=== PATIENT | male | born 1975 | race African-American/Black ===

== ENCOUNTER 2016-12-23 17:08 | Emergency (ER) | payer SELFPAY ==
[~2016-12-23 17:08] MED LIST: AMOX500C PO; HYDR-3533 PO
[2016-12-23 17:10] VITALS: BP 130/90; PULSE 83; RESP 12; TEMP 98.7; O2SAT 98
[2016-12-23 17:52] LABS: BLOOD, URINE NEG (NEG); COMMENT (UR) CULT NOT INDICATED; CULTURE IF INDICATED CULT NOT INDICATED; GLUCOSE,URINE NEG (NEG); KETONE, URINE TRACE mg/dL (NEG); MUCUS URINE FEW /lpf (OCC); NITRITE,URINE NEG (NEG); PH, URINE 5.5 (5.0-8.5); SQUAMOUS EPITHELIAL CELL URINE <1 /hpf (0-5); URINE COLOR YELLOW (YELLW/STRAW)
[2016-12-23] MEDS ORDERED: SODIUM CHLOR 0.9% 1000 ML INJ 1,000 ML IV SCH (18:06)
--- NOTE | 2016-12-23 18:09 | PD ---
HPI Chief Complaint: Flank/Kidney Pain Time Seen by Provider: 17:59 Travel History International Travel<30 days: No Contact w/Intl Traveler<30days: No Traveled to known affect area: No History of Present Illness HPI Patient 41-year-old male presents emergency Department with right flank pain. Patient states she's also been having some mild nausea but the pain hurts him anytime he does twisting motion of his low back. States been gradually worsening over the past few days. He states it feels like it's his "kidney pain ". Patient states never had any problems kidneys stones in the past problems in his family. Denies any dysuria denies any blood in urine denies any fever. Denies any waking or weight loss. Denies any abdominal pain. Eyes any history of heavy lifting or traumatic injury to his low back. PFSH Past Medical History Diminished Hearing: No Past Surgical History Oral Surgery: Yes (FX JAW) Social History Alcohol Use: Yes (DAILY) Tobacco Use: Yes (1/2 ppd) Substance Use: No Allergies-Medications (Allergen,Severity, Reaction): Coded Allergies: No Known Allergies (Verified , 12/23/16) Reported Meds & Prescriptions Reported Meds & Active Scripts Active Flexeril (Cyclobenzaprine HCl) 10 Mg Tab 10 Mg PO TID Review of Systems Except as stated in HPI: all other systems reviewed are Neg Physical Exam Narrative GENERAL: Well-developed well-nourished no apparent distress. SKIN: Focused skin assessment warm/dry. HEAD: Atraumatic. Normocephalic. EYES: Pupils equal and round. No scleral icterus. No injection or drainage. ENT: No nasal bleeding or discharge. Mucous membranes pink and moist. NECK: Trachea midline. No JVD. CARDIOVASCULAR: Regular rate and rhythm. No murmur appreciated. RESPIRATORY: No accessory muscle use. Clear to auscultation. Breath sounds equal bilaterally. GASTROINTESTINAL: Abdomen soft, non-tender, nondistended. Hepatic and splenic margins not palpable. No CVA tenderness. MUSCULOSKELETAL: No obvious deformities. No clubbing. No cyanosis. No edema. No tenderness to palpation of the muscles of the low back. No CT or L-spine midline tenderness or step-off. NEUROLOGICAL: Awake and alert. No obvious cranial nerve deficits. Motor grossly within normal limits. Normal speech. PSYCHIATRIC: Appropriate mood and affect; insight and judgment normal. Data Data Last Documented VS Vital Signs Date Time Temp Pulse Resp B/P Pulse Ox O2 Delivery O2 Flow Rate FiO2 12/23/16 19:27 16 12/23/16 18:46 65 125/89 98 12/23/16 18:30 Room Air 12/23/16 17:10 98.7 Orders Urinalysis - C+S If Indicated (12/23/16 17:26) Basic Metabolic Panel (Bmp) (12/23/16 18:06) Complete Blood Count With Diff (12/23/16 18:06) Ct Abd/Pel W/O Iv Contrast (12/23/16 18:06) Iv Access Insert/Monitor (12/23/16 18:06) Ecg Monitoring (12/23/16 18:06) Oximetry (12/23/16 18:06) Ondansetron Inj (Zofran Inj) (12/23/16 18:15) Sodium Chlor 0.9% 1000 Ml Inj (Ns 1000 M (12/23/16 18:06) Sodium Chloride 0.9% Flush (Ns Flush) (12/23/16 18:15) Ketorolac Inj (Toradol Inj) (12/23/16 18:15) Labs Laboratory Tests Test 12/23/16 12/23/16 17:28 18:27 Urine Color YELLOW Urine Turbidity CLEAR Urine pH 5.5 Urine Specific L[place]ori 1.024 Urine Protein TRACE mg/dL Urine Glucose (UA) NEG mg/dL Urine Ketones TRACE mg/dL Urine Occult Blood NEG Urine Nitrite NEG Urine Bilirubin NEG Urine Urobilinogen LESS THAN 2.0 MG/DL Urine Leukocyte Esterase NEG Urine RBC LESS THAN 1 /hpf Urine WBC 1 /hpf Urine Squamous Epithelial <1 /hpf Cells Urine Mucus FEW /lpf Microscopic Urinalysis Comment CULT NOT INDICATED White Blood Count 9.0 TH/MM3 Red Blood Count 5.09 MIL/MM3 Hemoglobin 14.5 GM/DL Hematocrit 43.9 % Mean Corpuscular Volume 86.2 FL Mean Corpuscular Hemoglobin 28.4 PG Mean Corpuscular Hemoglobin 32.9 % Concent Red Cell Distribution Width 15.2 % Platelet Count 224 TH/MM3 Mean Platelet Volume 9.3 FL Neutrophils (%) (Auto) 67.5 % Lymphocytes (%) (Auto) 21.3 % Monocytes (%) (Auto) 9.7 % Eosinophils (%) (Auto) 0.7 % Basophils (%) (Auto) 0.8 % Neutrophils # (Auto) 6.1 TH/MM3 Lymphocytes # (Auto) 1.9 TH/MM3 Monocytes # (Auto) 0.9 TH/MM3 Eosinophils # (Auto) 0.1 TH/MM3 Basophils # (Auto) 0.1 TH/MM3 CBC Comment DIFF FINAL Differential Comment Sodium Level 140 MEQ/L Potassium Level 4.2 MEQ/L Chloride Level 104 MEQ/L Carbon Dioxide Level 25.9 MEQ/L Anion Gap 10 MEQ/L Blood Urea Nitrogen 23 MG/DL Creatinine 1.68 MG/DL Estimat Glomerular Filtration 55 ML/MIN Rate Random Glucose 109 MG/DL Calcium Level 9.4 MG/DL MDM Medical Decision Making Medical Screen Exam Complete: Yes Emergency Medical Condition: Yes Differential Diagnosis Kidney stone, muscular skeletal pain, UTI. Narrative Course Patient 41-year-old male roomed in emergency department, has elements of both musculoskeletal low back pain as well as kidney stone pain. Discussed with the patient could consider symptomatic management and follow-up with a primary care physician. Patient is quite concerned with his kidneys at this time and would like to get CT imaging. I'm amenable.. Last 24 hours Impressions Abdomen/Pelvis CT 12/23/16 1806 Signed Impressions: Service Date/Time: Friday, December 23, 2016 18:20 - CONCLUSION: Questionable mild left-sided colitis. No obstructive uropathy. Small right renal cyst. Marques Bejarano MD Discuss results with the patient he has had no colitis type symptoms at this time. Discussed if he starts having diarrhea nausea or vomiting and this may be the cause of his symptoms. However I feel on his physical exam that his symptoms are much more muscular skeletal. Discussed with him symptomatically management return to ED criteria follow-up with a primary care physician. He is stable for discharge at this time. Diagnosis Primary Impression: Left flank pain Additional Impression: Muscle strain Med/Other Pt SpecificInfo: Prescription(s) given Scripts Cyclobenzaprine (Flexeril)10 Mg Tab10 Mg PO TID #20 TAB Ref 0 Prov:Luca Marcus MD 12/23/16 Disposition: 01 DISCHARGE HOME Condition: Stable Luca Marcus MD Dec 23, 2016 18:09
[2016-12-23] MEDS ORDERED: KETOROLAC TROMETHAMINE 30 MG/ML (IVP) VIAL IVP ONE (18:15)
[2016-12-23] MEDS ORDERED: SODIUM CHLORIDE 0.9% FLUSH 10 ML FLUSH IV FLUSH PRN (18:15)
[2016-12-23] MEDS ORDERED: ONDANSETRON HCL 4 MG/2 ML VIAL IVP ONE (18:15)
[2016-12-23 18:30] VITALS: O2SAT 100
[2016-12-23 18:42] LABS: AUTOMATED NEUTROPHIL # 6.1 TH/MM3 (1.8-7.7); BASOPHIL # 0.1 TH/MM3 (0-0.2); BASOPHIL % 0.8 % (0.0-2.0); EOSINOPHIL # 0.1 TH/MM3 (0-0.4); EOSINOPHIL % 0.7 % (0.0-4.0); HEMATOCRIT 43.9 % (39.0-51.0); HEMO FLAGS DIFF FINAL; LYMPH % 21.3 % (9.0-44.0); LYMPHOCYTE # 1.9 TH/MM3 (1.0-4.8); MEAN CELL VOLUME 86.2 FL (80.0-100.0); MEAN CORPUSCULAR HEMOGLOBIN 28.4 PG (27.0-34.0); MEAN CORPUSCULAR HGB CONC 32.9 % (32.0-36.0); MONO % 9.7 % (0.0-8.0); NEUT % 67.5 % (16.0-70.0); PLATELET COUNT 224 TH/MM3 (150-450); RED BLOOD COUNT 5.09 MIL/MM3 (4.50-5.90); RED CELL DISTRIBUTION WIDTH 15.2 % (11.6-17.2)
[2016-12-23 18:46] VITALS: BP 125/89; PULSE 65; RESP 14; O2SAT 98
[2016-12-23] MEDS ORDERED: CYCL1TAB29 PO (18:46)
--- NOTE | 2016-12-23 18:51 | RADRPT ---
EXAM DATE/TIME: 12/23/2016 18:20 [facility] COMPARISON: No previous studies available for comparison. INDICATIONS : Left flank pain starting Thursday. ORAL CONTRAST: No oral contrast ingested. RADIATION DOSE: 13.28 CTDIvol (mGy) MEDICAL HISTORY : None SURGICAL HISTORY : None. ENCOUNTER: Initial ACUITY: 3 days PAIN SCALE: 10/10 LOCATION: Left Abdomen TECHNIQUE: Volumetric scanning of the abdomen and pelvis was performed. Using automated exposure control and ad justment of the mA and/or kV according to patient size, radiation dose was kept as low as reasonably achievable to obtain optimal diagnostic quality images. FINDINGS: Lung bases are clear. No acute findings in the liver, spleen, adrenals, kidneys or pancreas. No calcified gallstones or boogie iary ductal dilatation. There is a small right renal cysts. There is some questionable mild mural thi ckening left colon that may indicate a mild colitis. No significant pericolonic inflammatory changes. No pelvic masses or free fluid. No adenopathy. No acute bony abnormalities. CONCLUSION: Questionable mild left-sided colitis. No obstructive uropathy. Small right renal cyst. Marques Bejarano MD on December 23, 2016 at 18:44 Board Certified Radiologist. This report was verified electronically.
[2016-12-23 19:07] LABS: BICARBONATE 25.9 MEQ/L (21.0-32.0); POTASSIUM 4.2 MEQ/L (3.5-5.1)
[2016-12-23 19:27] VITALS: RESP 16
== END 2016-12-23 19:25 | disposition home or self-care (01) ==
LOC: NEPD 17:08
DX: R10.9 Unspecified abdominal pain (principal)
CPT/HCPCS: 74176; 80048; 81001; 85025; 96361; 96374; 96375; 99284; J1885; J2405; J7030